=== PATIENT | male | born 1955 | race Caucasian/White ===

== ENCOUNTER → 2016-08-10 | Outpatient (CLI) | payer BC ==
--- NOTE | 2016-08-11 07:23 | US ---
HISTORY: Abdominal pain Study: Abdominal ultrasound, complete Comparison: None Technique: Multiple grayscale sonographic images were obtained peer E Findings: The liver is normal in size and configuration and without cysts, mass, or biliary ductal dilatation. No gallstones are present within the gallbladder. Gallbladder wall thickness was normal. The common duct measured 2.9 millimeters. The spleen was normal. The pancreas and abdominal aorta were obscure d by overlying bowel gas. The right kidney measured 10.7 x 6 x 5.3 centimeters. The left kidney adams ured 10.8 x 5.6 x 5.4 centimeters. No solid masses, hydronephrosis, stones, or perinephric fluid col lections were identified. Benign renal cysts were present. IMPRESSION: No significant abnormality identified Reported By:
== END ==
LOC: RAD 14:27
PROVIDERS: ATTEND Family Medicine
DX: R10.84 Generalized abdominal pain (principal)
CPT/HCPCS: 76700